=== PATIENT | female | born 1965 ===

== ENCOUNTER 2018-08-31 13:15 | Observation (INO) | payer MEDICAID ==
[~2018-08-31] VITALS: Ht 154.9 cm; Wt 71.0 kg
[2018-08-31] MEDS ORDERED: ONDANSETRON 2MG/ML, 2ML IVPush ONE (13:30)
[2018-08-31] MEDS ORDERED: SODIUM CHLORIDE FLUSH 10ML SYR IVF ONE (13:30)
[2018-08-31] MEDS ORDERED: MORPHINE SULFATE 4 MG/ML, 1ML IVPush PRN (13:30)
[2018-08-31] MEDS ORDERED: SODIUM CHLORIDE 0.9% 1,000ML IVBOLUS ONE (13:30)
[2018-08-31] MEDS ORDERED: ONDANSETRON 2MG/ML, 2ML ONE (13:49)
[2018-08-31] MEDS ORDERED: MORPHINE SULFATE 4 MG/ML, 1ML ONE (13:50)
[2018-08-31 14:02] LABS: BASOPHILS # (AUTO) 0.06 x10^3/uL (0-0.1); BASOPHILS % (AUTO) 1 % (0-1); EOSINOPHILS # (AUTO) 0.08 x10^3/uL (0-0.4); EOSINOPHILS % (AUTO) 1 % (1-7); LYMPHOCYTES # (AUTO) 1.92 x10^3/uL (1-3.4); LYMPHOCYTES % (AUTO) 17 % (22-44); MD NO; MEAN CORPUSCULAR HGB CONC 33.2 g/dL (32.4-35.8); MEAN CORPUSCULAR VOLUME 90.5 fL (80-100); MEAN PLATELET VOLUME 9.3 fL (7.4-10.4); MONOCYTES # (AUTO) 0.78 x10^3/uL (0.2-0.8); MONOCYTES % (AUTO) 7 % (2-9); NEUTROPHILS # (AUTO) 8.21 x10^3/uL (1.8-6.8); NEUTROPHILS % (AUTO) 74 % (42-75); PLATELET COUNT 275 x10^3/uL (130-400); RED BLOOD COUNT 4.94 x10^6/uL (3.82-5.3); RED CELL DISTRIBUTION WIDTH 14.3 % (9.6-15.2)
[2018-08-31 14:14] LABS: ALANINE AMINOTRANSFERASE 15 U/L (12-78); ALBUMIN 3.6 g/dL (3.4-5.0); ANION GAP 10 mmol/L (5-15); CALCIUM 10.4 mg/dL (8.5-10.1); CHLORIDE 107 mmol/L (98-107); CREATININE 0.78 mg/dL (0.55-1.02)
[2018-08-31 14:16] LABS: ALKALINE PHOSPHATASE 86 U/L (45-117); BILIRUBIN,TOTAL 0.4 mg/dL (0.2-1.0); TOTAL PROTEIN 7.5 g/dL (6.4-8.2)
--- NOTE | 2018-08-31 14:17 | NUR ---
PT PRESENTS WITH LS ABD PAIN SINCE MONDAY. ALSO VOMITED TWICE YESTERDAY. REBOUND TENDERNESS. PT MEDICATED FOR PAIN. VSS.
--- NOTE | 2018-08-31 14:20 | NUR ---
PT MEDICATED WITH MORPHINE, PLACED ON CONT PULSE OX
--- NOTE | 2018-08-31 14:29 | NUR ---
DECLINED CATH UA. CC URINE SENT. PT WENT TO RADIOLOGY VIA [facility].
--- NOTE | 2018-08-31 15:08 | NUR ---
Patient is resting comfortably in bed. Vital Signs within normal limits.
[2018-08-31] MEDS ORDERED: PROMETHAZINE 25 MG/ML, 1ML ONE (15:18)
[2018-08-31 15:26] LABS: CULTURE INDICATED? YES; MICROSCOPIC INDICATED
[2018-08-31] MEDS ORDERED: PROMETHAZINE 25 MG/ML, 1ML IM ONE (15:30)
[2018-08-31] MEDS: SODIUM CHLORIDE 0.9% 1,000 ML IV SCH ×2 (15:47→21:13)
[2018-08-31] MEDS ORDERED: DEXTROSE 50%, 50ML SYRINGE IVPush PRN ×2 (16:00→21:00)
[2018-08-31] MEDS ORDERED: BISACODYL 10 MG SUPP PR PRN (16:00)
[2018-08-31] MEDS ORDERED: hydrALAzine 20 MG/ML, 1ML IVPush PRN (16:00)
[2018-08-31] MEDS ORDERED: ONDANSETRON 2MG/ML, 2ML IVPush PRN (16:00)
[2018-08-31] MEDS ORDERED: GLUCAGON 1 MG IM PRN ×2 (16:00→21:00)
[2018-08-31] MEDS ORDERED: morphine SULFATE 10 MG/ML, 1ML IVPush PRN (16:00)
[2018-08-31] MEDS: INSULIN LISPRO 100 UNITS/ML, PEN SQ-INSULIN SCH ×2 (16:00→20:28)
[2018-08-31] MEDS ORDERED: ACETAMINOPHEN 325 MG TABLET PO PRN (16:00)
[2018-08-31] MEDS ORDERED: ONDANSETRON ODT 4 MG PO PRN (16:00)
--- NOTE | 2018-08-31 16:04 | NUR ---
Pt back from [place]. States pain 04/22, no nausea at this time. Pt TBADM. Hospitalist @ [facility]. C/O pain at insertion site of IV L hand. IV d/c & pt expressed relief of pain. No swelling noted.
--- NOTE | 2018-08-31 16:53 | NUR ---
Preet rodríguez in [facility] - 08/31/18 at 1712 by KEYON Patient is resting comfortably in bed. Vital Signs within normal limits.
--- NOTE | 2018-08-31 16:53 | NUR ---
Patient is resting comfortably in bed. Vital Signs within normal limits.
[2018-08-31 17:01] LABS: HEMOGLOBIN A1C 7.3 % (4.2-6.3)
--- NOTE | 2018-08-31 17:41 | NUR ---
report given to staff nurse at onc (Maria L). The nurse has been informed of HPI, Home Meds, and Allergies for this patient.
[2018-08-31 17:52] VITALS: BP 123/85
[2018-08-31] MEDS: SODIUM CHLORIDE FLUSH 10ML SYR IVF SCH (19:06)
[2018-08-31 19:08] VITALS: BP 115/76
[2018-08-31] MEDS: TAMSULOSIN 0.4 MG CAP.ER.24H PO SCH (20:27)
[2018-08-31] MEDS ORDERED: DEXTROSE 4 GM TAB.CHEW PO PRN (21:00)
[2018-09-01] MEDS: DEXTROSE 4 GM TAB.CHEW PO PRN ×2 (00:49→10:15)
[2018-09-01 01:14] VITALS: BP 100/68
[2018-09-01] MEDS: SODIUM CHLORIDE 0.9% 1,000 ML IV SCH (04:35)
[2018-09-01] MEDS: KETOROLAC 30 MG/1 ML IV PRN ×4 (04:38→23:11)
[2018-09-01 05:29] LABS: BASOPHILS # (AUTO) 0.04 x10^3/uL (0-0.1); BASOPHILS % (AUTO) 1 % (0-1); EOSINOPHILS # (AUTO) 0.12 x10^3/uL (0-0.4); EOSINOPHILS % (AUTO) 2 % (1-7); LYMPHOCYTES # (AUTO) 2.65 x10^3/uL (1-3.4); LYMPHOCYTES % (AUTO) 39 % (22-44); MD NO; MEAN CORPUSCULAR HEMOGLOBIN 29.2 pg (27.0-34.8); MEAN CORPUSCULAR HGB CONC 32.4 g/dL (32.4-35.8); MEAN CORPUSCULAR VOLUME 90.3 fL (80-100); MEAN PLATELET VOLUME 8.8 fL (7.4-10.4); MONOCYTES # (AUTO) 0.69 x10^3/uL (0.2-0.8); MONOCYTES % (AUTO) 10 % (2-9); NEUTROPHILS # (AUTO) 3.26 x10^3/uL (1.8-6.8); NEUTROPHILS % (AUTO) 48 % (42-75); PLATELET COUNT 227 x10^3/uL (130-400); RED BLOOD COUNT 4.46 x10^6/uL (3.82-5.3); RED CELL DISTRIBUTION WIDTH 14.1 % (9.6-15.2)
[2018-09-01 05:33] LABS: ANION GAP 4 mmol/L (5-15); CALCIUM 9.1 mg/dL (8.5-10.1); CHLORIDE 108 mmol/L (98-107)
[2018-09-01 05:36] LABS: CREATININE 0.52 mg/dL (0.55-1.02)
[2018-09-01] MEDS: INSULIN LISPRO 100 UNITS/ML, PEN SQ-INSULIN SCH ×4 (07:00→20:55)
[2018-09-01 07:28] VITALS: BP 103/68
[2018-09-01] MEDS: POLYETHYLENE GLYCOL 17 GM PACKET PO SCH (09:00)
[2018-09-01] MEDS: SENNA/DOCUSATE TABLET PO SCH (09:00)
[2018-09-01] MEDS: TAMSULOSIN 0.4 MG CAP.ER.24H PO SCH (09:28)
[2018-09-01] MEDS: SODIUM CHLORIDE FLUSH 10ML SYR IVF SCH ×2 (09:28→21:00)
[2018-09-01] MEDS ORDERED: SUCCINYLCHOLINE 20 MG/ML, 10ML ONE (13:19)
[2018-09-01] MEDS ORDERED: CIPROFLOXACIN 400MG/200ML PMX ONE (13:19)
[2018-09-01] MEDS ORDERED: FENTANYL PF 250 MCG/5ML ONE (13:19)
[2018-09-01] MEDS ORDERED: ONDANSETRON 2MG/ML, 2ML ONE (13:19)
[2018-09-01] MEDS ORDERED: PROPOFOL 10 MG/ML, 20ML ONE (13:19)
[2018-09-01] MEDS ORDERED: MIDAZOLAM 1 MG/ML, 5ML ONE (13:19)
[2018-09-01] MEDS ORDERED: ROCURONIUM 10MG/ML,5ML ONE (13:19)
[2018-09-01] MEDS ORDERED: MIDAZOLAM 1 MG/ML, 2ML ONE (13:21)
[2018-09-01] MEDS ORDERED: FENTANYL PF 100 MCG/2ML ONE (13:21)
[2018-09-01] MEDS ORDERED: OXYcodone 5 MG/5 ML ORAL.SOL UDC PO PRN (14:00)
[2018-09-01] MEDS ORDERED: PROMETHAZINE 25 MG/ML, 1ML IV PRN (14:00)
[2018-09-01] MEDS ORDERED: HYDROmorphone 1 MG/ML, 1ML INJ IV PRN (14:00)
[2018-09-01] MEDS ORDERED: hydrALAzine 20 MG/ML, 1ML IV PRN (14:00)
[2018-09-01] MEDS ORDERED: ALBUTEROL SULFATE 2.5 MG/3 ML NPPB PRN (14:00)
[2018-09-01] MEDS ORDERED: KETOROLAC 30 MG/1 ML IV PRN (14:00)
[2018-09-01] MEDS ORDERED: METOCLOPRAMIDE 5 MG/ML, 2ML IV PRN (14:00)
[2018-09-01] MEDS ORDERED: MEPERIDINE/PF 25MG/0.5ML IVPush PRN (14:00)
[2018-09-01] MEDS ORDERED: FENTANYL PF 100 MCG/2ML IV PRN (14:00)
[2018-09-01] MEDS ORDERED: LABETALOL 5MG/ML, 20ML IV PRN (14:00)
[2018-09-01] MEDS ORDERED: ONDANSETRON 2MG/ML, 2ML IVPush PRN (14:00)
[2018-09-01] MEDS ORDERED: OXYcodone 5 MG/5 ML ORAL.SOL UDC ONE (14:47)
[2018-09-01 15:45] VITALS: BP 127/84
[2018-09-01 19:48] VITALS: BP 119/82
[2018-09-02 03:37] VITALS: BP 112/71
[2018-09-02 05:08] LABS: BASOPHILS # (AUTO) 0.03 x10^3/uL (0-0.1); BASOPHILS % (AUTO) 0 % (0-1); EOSINOPHILS % (AUTO) 2 % (1-7); LYMPHOCYTES # (AUTO) 2.49 x10^3/uL (1-3.4); LYMPHOCYTES % (AUTO) 37 % (22-44); MD NO; MEAN CORPUSCULAR HEMOGLOBIN 29.8 pg (27.0-34.8); MEAN CORPUSCULAR HGB CONC 33.2 g/dL (32.4-35.8); MEAN CORPUSCULAR VOLUME 89.9 fL (80-100); MEAN PLATELET VOLUME 8.9 fL (7.4-10.4); MONOCYTES # (AUTO) 0.54 x10^3/uL (0.2-0.8); MONOCYTES % (AUTO) 8 % (2-9); NEUTROPHILS # (AUTO) 3.61 x10^3/uL (1.8-6.8); NEUTROPHILS % (AUTO) 53 % (42-75); PLATELET COUNT 240 x10^3/uL (130-400); RED BLOOD COUNT 4.29 x10^6/uL (3.82-5.3); RED CELL DISTRIBUTION WIDTH 14.2 % (9.6-15.2)
[2018-09-02 05:22] LABS: ANION GAP 4 mmol/L (5-15); CALCIUM 9.1 mg/dL (8.5-10.1); CHLORIDE 108 mmol/L (98-107)
[2018-09-02 05:24] LABS: CREATININE 0.57 mg/dL (0.55-1.02)
[2018-09-02] MEDS: INSULIN LISPRO 100 UNITS/ML, PEN SQ-INSULIN SCH ×2 (07:00→11:00)
[2018-09-02] MEDS ORDERED: Tamsulosin PO (08:04)
[2018-09-02] MEDS ORDERED: CHOL500015 PO (08:04)
[2018-09-02] MEDS: POLYETHYLENE GLYCOL 17 GM PACKET PO SCH (08:21)
[2018-09-02] MEDS: SENNA/DOCUSATE TABLET PO SCH (08:22)
[2018-09-02 08:27] VITALS: BP 129/86
[2018-09-02] MEDS: TAMSULOSIN 0.4 MG CAP.ER.24H PO SCH (08:29)
[2018-09-02] MEDS: SODIUM CHLORIDE FLUSH 10ML SYR IVF SCH (09:00)
[2018-09-02] MEDS ORDERED: IBUPROFEN 200 MG TABLET ONE (11:19)
[2018-09-02] MEDS ORDERED: IBUPROFEN 200 MG TABLET PO PRN (11:30)
[2018-09-02 12:41] VITALS: BP 119/90
[2018-09-02] MEDS ORDERED: SODIUM CHLORIDE 0.9% 1,000 ML IV SCH (15:47)
== END 2018-09-02 12:58 | disposition home or self-care (01) ==
LOC: ED 13:55 → EDIP 16:10 → 3NW 17:48
PROVIDERS: ADMIT Internal Medicine; ATTEND Internal Medicine
DX: N20.0 Calculus of kidney (principal); R11.2 Nausea with vomiting, unspecified; E11.649 Type 2 diabetes mellitus with hypoglycemia without coma; D72.829 Elevated white blood cell count, unspecified; K59.00 Constipation, unspecified; E55.9 Vitamin D deficiency, unspecified; Z87.442 Personal history of urinary calculi; Z83.3 Family history of diabetes mellitus
CPT/HCPCS: 36415; 52356; 74018; 74176; 76770; 80048; 80053; 81001; 82306; 82330; 82360; 82962; 83036; 83690; 83970; 84443; 85025; 87086; 88300; 93005; 96361; 96374; 96375; 96376; 99284; C1758; C1769; C2617; G0378; J0330; J0744; J1885; J2250; J2270; J2405; J2704; J3010; J7030

== ENCOUNTER 2018-09-26 08:51 | Emergency (ER) | payer MEDICAID ==
[~2018-09-26] VITALS: Ht 154.9 cm; Wt 68.2 kg
[~2018-09-26 08:51] MED LIST: CHOL500015 PO; Tamsulosin PO
[2018-09-26 08:55] VITALS: BP 126/88
--- NOTE | 2018-09-26 09:00 | NUR ---
LEFT FOOT/ANKLE PAIN "STEPPED OUT OF MY TRUCK LAST NIGHT, DIDN'T NOTICE THERE WAS ROCKS, MY FOOT WENT SIDEWAYS, DIDN'T REALLY HURT BUT THEN WOKE UP THIS MORNING AND IT REALLY HURTS." DENIES ANY LOC OR HITTING HEAD. AMBULATORY IN TRIAGE, CMS INTACT. PEDAL PULSE NORMAL/STRONG. UPDATED ON ESTIMATED POC
--- NOTE | 2018-09-26 09:40 | NUR ---
ICE PACK APPLIED TO AFFECTED EXTREMITY REPORTS PAIN AT 09/19-PROVIDER MADE AWARE UPDATED ON ESTIMATED POC
[2018-09-26] MEDS ORDERED: METF500T27 PO (09:57)
[2018-09-26] MEDS ORDERED: EXEN2PEN IM (09:57)
== END 2018-09-26 10:22 | disposition home or self-care (01) ==
LOC: ED 10:11
DX: S93.492A Sprain of other ligament of left ankle, initial encounter (principal); E11.9 Type 2 diabetes mellitus without complications; W10.8XXA Fall (on) (from) other stairs and steps, initial encounter; Y93.89 Activity, other specified; Y92.410 Unspecified street and highway as the place of occurrence of the external cause; Y99.8 Other external cause status
CPT/HCPCS: 99283; 99284